=== PATIENT | male | born 1995 | race Caucasian/White ===

== ENCOUNTER 2019-09-03 11:45 | Emergency (ER) | payer BC ==
--- NOTE | 2019-09-03 12:17 | UC ---
Throat Pain/Nasal Alfie HPI - HPI Summary HPI Summary: 23-year-old male with a sore throat for the past 5 days and feeling of his ears being plugged. He denies any fever or chills. He states he has a productive cough of greenish sputum. He is a nonsmoker. - History of Current Complaint Stated Complaint: BILAT EAR PAIN/ST/BLURRY VISION Time Seen by Provider: 09/03/19 12:09 Hx Obtained From: Patient Onset/Duration: Gradual Onset Severity: Mild Cough: Productive - Allergies/Home Medications Allergies/Adverse Reactions: Allergies Allergy/AdvReac Type Severity Reaction Status Date / Time amoxicillin Allergy Unknown Hives Verified 09/03/19 12:17 Home Medications: Home Medications L.acidoph,Paracasei, B.lactis [Probiotic] 1 each PO DAILY 09/03/19 [History Confirmed 09/03/19] Olmesartan/Hydrochlorothiazide [Olmesartan Medoxomil/Hydr 20-12.5 mg] 1 tab PO DAILY 09/03/19 [History Confirmed 09/03/19] PMH/Surg Hx/FS Hx/Imm Hx Previously Healthy: Yes - Surgical History Surgical History: None - Family History Known Family History: Positive: Non-Contributory - Social History Lives: With Family Alcohol Use: Occasionally Substance Use Type: None Smoking Status (MU): Heavy Every Day Tobacco Smoker Review of Systems All Other Systems Reviewed And Are Negative: Yes ENT: Positive: Sore Throat, Other - Patient states his ears do not hurt however he does have a feeling of something plugged. Respiratory: Positive: Cough - Productive cough of greenish sputum. Is Patient Immunocompromised?: No Physical Exam Triage Information Reviewed: Yes Appearance: Well-Appearing, No Pain Distress, Well-Nourished Vital Signs Reviewed: Yes Eyes: Positive: Conjunctiva Clear ENT: Positive: Pharyngeal erythema, TMs normal, Uvula midline, Other - Patient has pharyngeal erythema but also white spots on his tongue and the back of his throat which appear more yeastlike. Neck: Positive: Supple, Nontender, No Lymphadenopathy Respiratory: Positive: Lungs clear, Normal breath sounds, No respiratory distress, No accessory muscle use Cardiovascular: Positive: RRR, No Murmur, Pulses Normal, Brisk Capillary Refill Abdomen Description: Positive: Nontender, No Organomegaly, Soft. Negative: CVA Tenderness (R), CVA Tenderness (L), Distended, Guarding, Hepatomegaly, Splenomegaly Musculoskeletal Exam: Normal Neurological Exam: Normal Psychological Exam: Normal Skin Exam: Normal Throat Pain/Nasal Course/Dx - Course Course Of Treatment: Rapid strep test: negative Fingerstick glucose: Out of ranged, rechecked twice Pt refuses to go to the emergency room by ambulance and prefers to drive by private car. I did advise him he needs to sign out AGAINST MEDICAL ADVICE in order to this and he was agreeable to doing that. I did call Jessica Rai, nurse practitioner at [facility] and advised her of his impending arrival and his history of present illness. - Differential Dx/Diagnosis Provider Diagnosis: Pharyngitis, Thrush, Elevated blood sugar level Discharge ED - Sign-Out/Discharge Documenting (check all that apply): Patient Departure All imaging exams completed and their final reports reviewed: No Studies - Discharge Plan Condition: Fair Disposition: HOME-RECOMMEND TO ED Referrals: No Primary Care Phys,NOPCP [Primary Care Provider] - Additional Instructions: Go directly to [facility] for further care for your elevated blood sugar. If you have any concerns or problems between here and there warehouse puller and call 911. - Billing Disposition and Condition Condition: FAIR Disposition: Home-Recommend to ED
[2019-09-03 12:29] VITALS: BP 138/69
== END 2019-09-03 13:11 | disposition home health service (06) ==
LOC: UCCORT 11:45
DX: J02.9 Acute pharyngitis, unspecified (principal); B37.0 Candidal stomatitis; R73.9 Hyperglycemia, unspecified; F17.290 Nicotine dependence, other tobacco product, uncomplicated; Z88.0 Allergy status to penicillin
CPT/HCPCS: 87651; 99212; G0463

== ENCOUNTER 2019-10-24 10:10 | Emergency (ER) | payer OTHER ==
--- OUTSIDE RECORDS SUMMARY | 2019-10-24 10:21 | XMS REPORT | Continuity of Care Document ---
:1995 External Reference #:[id number] Author Name Anam Sheppard MD Address [address] [place] [address] Care Team Providers Name Role Phone Adilson Sen FNP - Family Care Team Information Adult And Pediatric Neurologist [phone] Anam Sheppard MD - Family Medicine Care Team Information Adult And Pediatric Neurologist Michael Zelaya, RN Care Team Information Adult And Pediatric Neurologist [phone] Problems Description No Information Available Social History Type Date Description Comments Sex Unknown ETOH Use Uses Alcohol Daily Whisky or Vodka Recreational Drug Use Marijuana occassionally Tobacco Use Start: Unknown Patient is a current 15 cigarettes/day smoker, smokes every day Smoking Status Reviewed: 10/11/19 Patient is a current 15 cigarettes/day smoker, smokes every day Allergies, Adverse Reactions, Alerts Active Allergies Reaction Severity Comments Date Penicillin Hives 03/26/2019 Amoxicillin Hives 03/26/2019 Medications Active Medications SIG Qnty Indications Ordering Date Provider Dario M20 1 tab by mouth 30tabs E87.6 Anam Sheppard, 10/11/2019 20Meq every day MD Tablets ER Glucose 1 packet by 10units E10.9 Anam Sheppard, 10/11/2019 40% Gel mouth as needed MD for low blood glucose Olmesartan 1 by mouth every Unknown Medoxomil/Hydrochloro day thiazide 40-12.5mg Tablets Ibuprofen 3-4 tabs by Unknown 200mg mouth three Capsules times a day as needed with food or snack for pain Multivitamin Adult 1 by mouth every Unknown day Tablets Prilosec OTC 1 by mouth every Unknown 20mg day; as needed. Tablets DR Vargas Flextouch inject 15 units 30ml Anam Sheppard, under the skin 100Unit/ML Solution every morning Pen-Inject dispose of pen 28 days after first use Novolog Flexpen Inject 1 3 Times Unknown Daily Per 100Unit/ML Solution Sliding Scale Pen-Inject Maximum Daily Dose 10 Units Dispose Of Pen 28 Days After First Use Onetouch Delica Plus test 1 3 times 300units Anam Sheppard, Lancets Fine 30G daily as MD Plus directed 30G Misc Onetouch Verio test 1 3 times a 300units Anam Sheppard, Strips day as directed History Medications Omeprazole 1 by mouth 30caps K21.0 Eloy Solares MD 04/23/2019 - 20mg every day 09/10/[address] before meals Immunizations CPT Code Status Date Vaccine Lot # [id number] Given 05/31/1995 DTP Toxoids & Hib Vaccine 39008 Given 05/31/1995 Poliovirus Vaccine Oral 30810 Given 05/31/1995 MMR Vaccine, Live, For Subcutaneous Use 18422 Given 08/16/1994 Hepatitis B Vaccine 66527 Given 06/03/1994 DTP Toxoids & Hib Vaccine 51440 Given 03/26/1994 Hepatitis B Vaccine 50671 Given 03/26/1994 DTP Toxoids & Hib Vaccine 84433 Given 03/26/1994 Poliovirus Vaccine Oral 89688 Given 01/01/1994 Hemophilus Influenza B 11341 Given 01/01/1994 Hepatitis B Vaccine 84922 Given 01/01/1994 Poliovirus Vaccine Oral 93194 Given 01/01/1994 DTP Vaccine 49215 Refused 10/11/2019 Influenza Virus Vaccine, Quadrivalent, 36 Mos+, .5ML Vital Signs Date Vital Result Comment 10/11/2019 8:05am BP Systolic 138 mmHg BP Diastolic 92 mmHg Body Temperature 98.2 F Heart Rate 110 /min Respiratory Rate 20 /min Height 68 inches 5'8" Weight 154.00 lb BMI (Body Mass Index) 23.4 kg/m2 BSA (Body Surface Area) 1.83 m2 [place] body weight in kilograms 70 kg O2 % BldC Oximetry 97 % 09/10/2019 8:38am BP Systolic Sitting Left Arm 98 mmHg BP Diastolic Sitting Left Arm 62 mmHg Body Temperature 98.5 F Heart Rate 107 /min Respiratory Rate 18 /min Height 68 inches 5'8" Weight 149.00 lb BMI (Body Mass Index) 22.7 kg/m2 BSA (Body Surface Area) 1.80 m2 [place] body weight in kilograms 70 kg O2 % BldC Oximetry 98 % ra Results Test Acquired Date Facility Test Result H/L Range Note CBC 10/08/2019 [facility] White Blood 7.1 K/uL Normal 3.4-10.5 1 W/Automated [address] [place] [address] [phone] Red Blood Count 4.49 M/uL Normal 4.20-5.80 Hemoglobin 14.9 gm/dL Normal 12.8-17.0 Hematocrit 43.4 % Normal 38.0-48.0 Mean Cell Volume 96.7 fl High 80.0-96.0 Mean Corpuscular HGB 33.2 pg High 27.0-33.0 Mean Corpuscular HGB Conc 34.3 g/dL Normal 31.7-36.0 Platelet Count 236 K/uL Normal 155-360 Red Cell Distri Width SD 47.5 fl Normal 36-51 Red Cell Distri Width %CV 13.4 % Normal 11.6-15.8 Mean Platelet Volume 10.1 fl Normal 6.6-10.6 Neut% 58.1 % Normal 33.0-73.0 Lymph % 25.6 % Normal 20.0-42.0 [place] % 10.1 % High 0.0-10.0 Eo% 5.2 % Normal 0.0-6.6 Bas% 0.6 % Normal 0.0-1.1 Immature Grans 0.4 % Normal 0.0-5.0 NRBC % 0.0 /100WBC < 10/ 100 WBC Neut# 4.10 K/uL Normal 1.8-7.0 Lymph # 1.81 K/uL Normal 1.0-4.0 [place] # 0.71 K/uL Normal 0.0-0.8 Eos # 0.37 K/uL Normal 0.0-0.5 Baso # 0.04 K/uL Normal 0.0-0.1 Immature Grans Absolute 0.03 K/uL NRBC # 0.00 K/uL Iron-Tibc-%Sat 10/08/2019 [facility] Serum Iron 215 g/dL High 65-175 [address] [place], [place] [id number] [phone] Total Iron Binding Capacity 375 g/dL Normal 250-450 Transferrin %Saturation 57 % Normal 12-57 Laboratory test 10/08/2019 [facility] Ferritin 701 ng/mL High 26-388 finding [address] [place], [place] [id number] [phone] Comprehensive 10/08/2019 [facility] Glucose 101 mg/dL Normal 74-106 Metabolic Panel [address] [place], [place] [id number] [phone] BUN 8 mg/dL Normal 7-18 Creatinine 1.5 mg/dL High 0.6-1.3 Glom Filtration Rate, Estimate >60 mL/min >60 If >60 mL/min >60 2 BUN/Creat 5.3 ratio Sodium 134 mmol/L Low 136-145 Potassium 2.9 mmol/L Low 3.5-5.1 Chloride 88 mmol/L Critical low 98-107 Carbon Dioxide 37 mmol/L High 21-32 Anion Gap 9 mEq/L Normal 8-16 Calcium 8.8 mg/dL Normal 8.5-10.1 Total Protein 7.0 g/dL Normal 6.4-8.2 Albumin 3.2 g/dL Low 3.4-5.0 Globulin 3.8 g/dL Normal 1.9-4.3 Alb/Glob 0.8 ratio Bilirubin,Total 1.5 mg/dL High 0.2-1.0 Sgot/Ast 223 U/L High 15-37 SGPT/Alt 129 U/L High 12-78 Alkaline Phosphatase 139 U/L High 45-117 CBC W/Automated 06/06/2019 [facility] White Blood 7.3 K/uL Normal 3.4-10.5 3 Diff [address] [place] [address] [phone] Red Blood Count 5.12 M/uL Normal 4.20-5.80 Hemoglobin 17.0 gm/dL Normal 12.8-17.0 Hematocrit 49.3 % High 38.0-48.0 Mean Cell Volume 96.3 fl High 80.0-96.0 Mean Corpuscular HGB 33.2 pg High 27.0-33.0 Mean Corpuscular HGB Conc 34.5 g/dL Normal 31.7-36.0 Platelet Count 243 K/uL Normal 155-360 Red Cell Distri Width SD 52.9 fl High 36-51 Red Cell Distri Width %CV 14.9 % Normal 11.6-15.8 Mean Platelet Volume 10.2 fl Normal 6.6-10.6 Neut% 60.9 % Normal 33.0-73.0 Lymph % 23.3 % Normal 20.0-42.0 [place] % 9.8 % Normal 0.0-10.0 Eo% 4.5 % Normal 0.0-6.6 Bas% 0.7 % Normal 0.0-1.1 Immature Grans 0.8 % Normal 0.0-5.0 NRBC % 0.0 /100WBC < 10/ 100 WBC Neut# 4.46 K/uL Normal 1.8-7.0 Lymph # 1.71 K/uL Normal 1.0-4.0 [place] # 0.72 K/uL Normal 0.0-0.8 Eos # 0.33 K/uL Normal 0.0-0.5 Baso # 0.05 K/uL Normal 0.0-0.1 Immature Grans Absolute 0.06 K/uL NRBC # 0.00 K/uL [facility] 06/06/2019 [facility] Glucose 102 mg/dL Normal 74-106 Metabolic Panel [address] [place] [address] [phone] BUN 4 mg/dL Critical low 7-18 Creatinine 0.9 mg/dL Normal 0.6-1.3 Glom Filtration Rate, Estimate >60 mL/min >60 If >60 mL/min >60 4 BUN/Creat 4.4 ratio Sodium 136 mmol/L Normal 136-145 Potassium 4.1 mmol/L Normal 3.5-5.1 Chloride 98 mmol/L Normal 98-107 Carbon Dioxide 37 mmol/L High 21-32 Anion Gap 1 mEq/L Low 8-16 Calcium 9.4 mg/dL Normal 8.5-10.1 Total Protein 7.8 g/dL Normal 6.4-8.2 Albumin 3.8 g/dL Normal 3.4-5.0 Globulin 4.0 g/dL Normal 1.9-4.3 Alb/Glob 1.0 ratio Bilirubin,Total 0.6 mg/dL Normal 0.2-1.0 Sgot/Ast 405 U/L High 15-37 SGPT/Alt 301 U/L High 12-78 Alkaline Phosphatase 157 U/L High 45-117 Laboratory test finding 06/06/2019 [facility] Lipase 145 U/L Normal 56-[address] [place], [place] [id number] [phone] Amylase 29 U/L Normal 25-115 CBC W/Automated 04/16/2019 [facility] White Blood 13.1 K/uL High 3.4-10.5 [address] Count [place], [place] [id number] [phone] Red Blood Count 5.24 M/uL Normal 4.20-5.80 Hemoglobin 18.0 gm/dL High 12.8-17.0 Hematocrit 48.1 % High 38.0-48.0 Mean Cell Volume 91.8 fl Normal 80.0-96.0 Mean Corpuscular HGB 34.4 pg High 27.0-33.0 Mean Corpuscular HGB Conc 37.4 g/dL High 31.7-36.0 Platelet Count 273 K/uL Normal 155-360 Red Cell Distri Width SD 44.8 fl Normal 36-51 Red Cell Distri Width %CV 13.3 % Normal 11.6-15.8 Mean Platelet Volume 9.5 fl Normal 6.6-10.6 Neut% 74.2 % High 33.0-73.0 Lymph % 11.3 % Low 20.0-42.0 [place] % 9.1 % Normal 0.0-10.0 Eo% 4.2 % Normal 0.0-6.6 Bas% 0.3 % Normal 0.0-1.1 Immature Grans 0.9 % Normal 0.0-5.0 NRBC % 0.0 /100WBC < 10/ 100 WBC Neut# 9.68 K/uL High 1.8-7.0 Lymph # 1.47 K/uL Normal 1.0-4.0 [place] # 1.19 K/uL High 0.0-0.8 Eos # 0.55 K/uL High 0.0-0.5 Baso # 0.04 K/uL Normal 0.0-0.1 Immature Grans Absolute 0.12 K/uL NRBC # 0.00 K/uL Comprehensive Metabolic 04/16/2019 [facility] Glucose 117 mg/dL High 74-106 Panel [address] [place], [place] [id number] [phone] BUN 12 mg/dL Normal 7-18 Creatinine 1.7 mg/dL High 0.6-1.3 Glom Filtration Rate, Estimate 52 mL/min >60 If >60 mL/min >60 6 BUN/Creat 7.0 ratio Sodium 130 mmol/L Low 136-145 Potassium 2.9 mmol/L Low 3.5-5.1 Chloride 86 mmol/L Critical low 98-107 Carbon Dioxide 32 mmol/L Normal 21-32 Anion Gap 12 mEq/L Normal 8-16 Calcium 9.4 mg/dL Normal 8.5-10.1 Total Protein 8.2 g/dL Normal 6.4-8.2 Albumin 3.9 g/dL Normal 3.4-5.0 Globulin 4.3 g/dL Normal 1.9-4.3 Alb/Glob 0.9 ratio Bilirubin,Total 0.5 mg/dL Normal 0.2-1.0 Sgot/Ast 106 U/L High 15-37 SGPT/Alt 128 U/L High 12-78 Alkaline Phosphatase 104 U/L Normal 45-117 Laboratory test 04/16/2019 [facility] Lipase 8893 U/L Critical 56-289 7 finding [address] [place], [place] [address] [phone] Ua RFX Micro & 04/16/2019 [facility] Urine YELLOW Yellow Culture II [address] [place], [place] [id number] [phone] Urine Clarity CLEAR Clear Urine Glucose - Dipstick NEGATIVE mg/dL Negative Urine Bilirubin - Dipstick NEGATIVE Negative Urine Ketone TRACE mg/dL High Negative Urine Specific [place] >= 1.030 Normal 1.010-1.030 Urine Blood NEGATIVE Negative Urine PH 5.0 Low 6.5-7.5 Urine Protein - Dipstick TRACE mg/dL Negative Urine Urobilinogen - Dipstick 0.2 E.U./dL Normal 0.2-1.0 Urine Nitrite - Dipstick NEGATIVE Negative Urine Leuk Esterase NEGATIVE Negative Source: URINE, CLEAN CAT <SEE NOTE> 8 1 E10.69 2 Note: Persistent reduction for 3 months or more in an eGFR <60 mL/min/1.73 m2 defines CKD. Patients with eGFR values >/=60 mL/min/1.73 m2 may also have CKD if evidence of persistent proteinuria is present. The original MDRD equation for estimated GFR is not valid for patients less than 18 years of age. Additional information may be found at www.kdoqi.org. 3 K85.20 4 Note: Persistent reduction for 3 months or more in an eGFR <60 mL/min/1.73 m2 defines CKD. Patients with eGFR values >/=60 mL/min/1.73 m2 may also have CKD if evidence of persistent proteinuria is present. The original MDRD equation for estimated GFR is not valid for patients less than 18 years of age. Additional information may be found at www.kdoqi.org. 5 UPPER RT ABD PAIN GOING INTO BACK 6 Note: Persistent reduction for 3 months or more in an eGFR <60 mL/min/1.73 m2 defines CKD. Patients with eGFR values >/=60 mL/min/1.73 m2 may also have CKD if evidence of persistent proteinuria is present. The original MDRD equation for estimated GFR is not valid for patients less than 18 years of age. Additional information may be found at www.kdoqi.org. 7 CALLED LIP TO GOKUL Chase AT 2312 04/16/19 by [email or web address] 8 URINE, CLEAN CATCH Procedures Date Code Description Status 04/11/2019 05367 Colonoscopy With Biopsy Completed Medical Devices Description No Information Available Encounters Type Date Location Provider Dx Diagnosis Office Visit 10/11/2019 Primary Care Anam Sheppard, E10.9 Type 1 diabetes 8:00a Office mellitus without complications E87.6 Hypokalemia F10.19 Alcohol abuse with unspecified alcohol-induced disorder R94.5 Abnormal results of liver function studies Office Visit 09/10/2019 8:40a Primary Care Silver E10.9 Type 1 diabetes Office MD Anam mellitus without complications I10 Essential (primary) hypertension K85.20 Alcohol induced acute pancreatitis without necrosis or infct Z72.0 Tobacco use Office Visit 06/12/2019 10:00a Eloy Harrington MD R79.89 Other specified abnormal findings of blood chemistry R10.13 Epigastric pain K85.20 Alcohol induced acute pancreatitis without necrosis or infct Office Visit 04/23/2019 1:45p GI Eloy Solares MD K85.20 Alcohol induced acute pancreatitis without necrosis or infct K44.9 Diaphragmatic hernia without obstruction or gangrene K21.0 Gastro-esophageal reflux disease with esophagitis Assessments Date Code Description Provider 10/11/2019 E10.9 Type 1 diabetes mellitus without Anam Sheppard MD complications 10/11/2019 E87.6 Hypokalemia Anam Sheppard MD 10/11/2019 F10.19 Alcohol abuse with unspecified Anam Sheppard MD alcohol-induced disorder 10/11/2019 R94.5 Abnormal results of liver function studies Anam Sheppard MD 09/10/2019 E10.9 Type 1 diabetes mellitus without Anam Sheppard MD complications 09/10/2019 I10 Essential (primary) hypertension Anam Sheppard MD 09/10/2019 K85.20 Alcohol induced acute pancreatitis without Anam Sheppard MD necrosis or infection 09/10/2019 Z72.0 Tobacco use Anam Sheppard MD 09/04/2019 E10.69 Type 1 diabetes mellitus with other Cadet, Adilson, [employer] specified complication 09/04/2019 E86.0 Dehydration Cadet, Adilson, [employer] 09/04/2019 E87.8 Other disorders of electrolyte and fluid Cadet, Adilson, [employer] balance, not elsewhere classified 09/04/2019 K85.90 Acute pancreatitis without necrosis or Cadet, Adilson, [employer]ING infection, unspecified 09/03/2019 E10.69 Type 1 diabetes mellitus with other Cadet, Adilson, [employer] specified complication 09/03/2019 E86.0 Dehydration Cadet, Adilson, [employer]ING 09/03/2019 H53.8 Other visual disturbances Cadet, Adilson, [employer] 09/03/2019 E87.8 Other disorders of electrolyte and fluid Cadet, Adilson, [employer]ING balance, not elsewhere classified 06/12/2019 R79.89 Other specified abnormal findings of blood Eloy Solares MD chemistry 06/12/2019 R10.13 Epigastric pain Eloy Solares MD 06/12/2019 K85.20 Alcohol induced acute pancreatitis without Eloy Solares MD necrosis or infection 04/23/2019 K85.20 Alcohol induced acute pancreatitis without Eloy Solares MD necrosis or infection 04/23/2019 K44.9 Diaphragmatic hernia without obstruction or Eloy Solares MD gangrene 04/23/2019 K21.0 Gastro-esophageal reflux disease with Eloy Solares MD esophagitis 04/19/2019 K85.20 Alcohol induced acute pancreatitis without Ray Aiken M.DAnibal necrosis or infection 04/19/2019 R10.13 Epigastric pain Ray Aiken M.D. 04/19/2019 N17.9 Acute kidney failure, unspecified AikenRay stevens M.D. 04/19/2019 E87.6 Hypokalemia Ray Aiken M.D. 04/18/2019 K85.20 Alcohol induced acute pancreatitis without Ray Aiken M.DAnibal necrosis or infection 04/18/2019 R10.13 Epigastric pain Ray Aiken M.D. 04/18/2019 D72.829 Elevated white blood cell count, Ray Aiken M.D. unspecified 04/18/2019 E87.6 Hypokalemia Ray Aiken M.D. 04/17/2019 K85.20 Alcohol induced acute pancreatitis without Ray Aiken MJacqueline necrosis or infection 04/17/2019 R10.13 Epigastric pain Ray Aiken M.D. 04/17/2019 N17.9 Acute kidney failure, unspecified Ray Aiken M.D. 04/17/2019 E87.6 Hypokalemia Ray Aiken M.D. 04/16/2019 K85.20 Alcohol induced acute pancreatitis without Fidel Webber M.D. necrosis or infection 04/16/2019 R10.13 Epigastric pain Fidel Webber M.D. 04/16/2019 D72.829 Elevated white blood cell count, Fidel Webber M.D. unspecified 04/11/2019 K44.9 Diaphragmatic hernia without obstruction or Eloy Solares MD gangrene 04/11/2019 K21.0 Gastro-esophageal reflux disease with Eloy Solares MD esophagitis 04/11/2019 K29.50 Unspecified chronic gastritis without Eloy Solares MD bleeding 04/11/2019 F17.210 Nicotine dependence, cigarettes, Eloy Solares MD uncomplicated 04/11/2019 Z79.899 Other nursing home (current) drug therapy Eloy Solares MD Plan of Treatment Future Appointment(s):11/13/2019 8:00 am - Anam Sheppard MD at [id number]/11/2019 - Anam Sheppard MDE10.9 Type 1 diabetes mellitus without complicationsNew Medication:Glucose 40 % - 1 packet by mouth as needed for low blood glucoseNew Labs:Comprehensive Metabolic Panel, Ordered: Hemochromatosis,Dna,Hereditary, Ordered: 10/11/19Comments:- Reviewed labs with patient. - Advised good hydration with water and repeat labs early next week.-Reviewed appropriate injection practice regarding rotating sites.- Reviewed signs and symptoms of hyperglycemia and hypoglycemia. Verfied that he is taking glucometer with him to work and coworker is aware that he is diabetic. - Unclear whether this is T1DM vs T2DM as he does not require mealtime insulin coverage. Patient seeing endocrinology 10/22/19.E87.6 HypokalemiaNew Medication:Klor-Con M20 20 Meq - 1 tab by mouth every dayComments :- Discussed low potassium levels and potassium rich foods such as bananas, spinach, broccoli, raisins, potatoes, etc. He admits that he does not eat much of these foods.- Potassium 20mEq tabs ordered,to be taken 1 tab daily for nextcouple of weeks. Will have follow-up lab work next week. Will follow his potassium levels a couple weeks after this as wellF10.19 Alcohol abuse with unspecified alcohol-induced disorderComments:- elevated liver enzymes- Discussed alcohol use and impact on liver and pancreas. Patient admits todrinking very heavily in the past, has reduced his consumption since last hospitalization. Advised to continued reduction until complete abstinence.- I did briefly discuss an inpatient detox program with the patient.R94.5 Abnormal results of liver function studiesComments:Patient admits to alcohol consumption on the days prior to lab draw.Denies any abdominal pain.Will follow-up lab work next week.Hydration encouraged.Counseled on the harmful effects of alcohol and recommended abstinence.Labs are reviewed with patient. He has elevated levels of ferritin, iron and TSAT. Will order hereditary hemachromatosis lab work.AllFollow up:Lab work next week. Follow-up 1 month Functional Status Description No Information Available Mental Status Description No Information Available Referrals Refer to Dr Reason for Referral Status Appt Date Michael Zelaya RN Diabetes Education. Newly diagnosed Patient Declined - presumed type 1 diabetic. Set to see Endocrine in October. LEFT MESSAGE TO SCHEDULE 09/11/19 [facility] [address] [place] [address] [phone]
--- OUTSIDE RECORDS SUMMARY | 2019-10-24 10:21 | XMS REPORT | Continuity of Care Document ---
:1995 External Reference #:[id number] Author Name Anam Sheppard MD Address [address] [place] [address] Care Team Providers Name Role Phone Adilson Sen FNP - Family Care Team Information Sorter Packer [phone] Anam Sheppard MD - Family Medicine Care Team Information Sorter Packer [phone] Michael Zelaya, RN Care Team Information Sorter Packer [phone] Problems Description No Information Available Social History Type Date Description Comments Sex Unknown ETOH Use Uses Alcohol Daily Whisky or Vodka Recreational Drug Use Marijuana occassionally Tobacco Use Start: Unknown Patient is a current 15 cigarettes/day smoker, smokes every day Smoking Status Reviewed: 09/10/19 Patient is a current 15 cigarettes/day smoker, smokes every day Allergies, Adverse Reactions, Alerts Active Allergies Reaction Severity Comments Date Penicillin Hives 03/26/2019 Amoxicillin Hives 03/26/2019 Medications Active Medications SIG Qnty Indications Ordering Provider Date Olmesartan 1 by mouth every Unknown Medoxomil/Hydrochlorot day hiazide 40-12.5mg Tablets Ibuprofen 3-4 tabs by mouth Unknown 200mg Capsules three times a day as needed with food or snack for pain Multivitamin Adult 1 by mouth every Unknown day Tablets Prilosec OTC 1 by mouth every Unknown 20mg Tablets day; as needed. DR Vargas Flextouch inject 15 units 30ml Anam Sheppard MD under the skin 100Unit/ML Solution every morning Pen-Inject dispose of pen 28 days after first use Novolog Flexpen Inject 1 3 Times Unknown Daily Per Sliding 100Unit/ML Solution Scale Maximum Pen-Inject Daily Dose 10 Units Dispose Of Pen 28 Days After First Use History Medications Omeprazole 1 by mouth 30caps K21.0 Eloy Solares MD 04/23/2019 - 20mg every day 09/10/[address] before meals Immunizations CPT Code Status Date Vaccine Lot # 73194 Given 05/31/1995 DTP Toxoids & Hib Vaccine 39563 Given 05/31/1995 Poliovirus Vaccine Oral 03466 Given 05/31/1995 MMR Vaccine, Live, For Subcutaneous Use 49105 Given 08/16/1994 Hepatitis B Vaccine 14946 Given 06/03/1994 DTP Toxoids & Hib Vaccine 91467 Given 03/26/1994 Hepatitis B Vaccine 15300 Given 03/26/1994 DTP Toxoids & Hib Vaccine 33647 Given 03/26/1994 Poliovirus Vaccine Oral 87467 Given 01/01/1994 [place] B [address] Given 01/01/1994 Hepatitis B Vaccine 13285 Given 01/01/1994 Poliovirus Vaccine Oral 98452 Given 01/01/1994 DTP Vaccine Vital Signs Date Vital Result Comment 09/10/2019 8:38am BP Systolic Sitting Left Arm 98 mmHg BP Diastolic Sitting Left Arm 62 mmHg Body Temperature 98.5 F Heart Rate 107 /min Respiratory Rate 18 /min Height 68 inches 5'8" Weight 149.00 lb BMI (Body Mass Index) 22.7 kg/m2 BSA (Body Surface Area) 1.80 m2 [place] body weight in kilograms 70 kg O2 % BldC Oximetry 98 % ra 06/12/2019 10:17am BP Systolic Sitting Left Arm 132 mmHg BP Diastolic Sitting Left Arm 90 mmHg Heart Rate 115 /min Respiratory Rate 16 /min Height 68 inches 5'8" Weight 154.00 lb BMI (Body Mass Index) 23.4 kg/m2 BSA (Body Surface Area) 1.83 m2 [place] body weight in kilograms 70 kg O2 % BldC Oximetry 98 % Ra Results Test Acquired Date Facility Test Result H/L Range Note CBC 06/06/2019 [facility] White Blood 7.3 K/uL Normal 3.4-10.5 1 W/Automated [address] Count Diff [place], [place] [address] [phone] Red Blood Count 5.12 M/uL Normal 4.20-5.80 [...] 33.0-73.0 Lymph % 23.3 % Normal 20.0-42.0 [place] % 9.8 % Normal 0.0-10.0 Eo% 4.5 % Normal 0.0-6.6 Bas% 0.7 % Normal 0.0-1.1 Immature Grans 0.8 % Normal 0.0-5.0 NRBC % 0.0 /100WBC < 10/ 100 WBC Neut# 4.46 K/uL Normal 1.8-7.0 Lymph # 1.71 K/uL Normal 1.0-4.0 [place] # 0.72 K/uL Normal 0.0-0.8 Eos # 0.33 K/uL Normal 0.0-0.5 Baso # 0.05 K/uL Normal 0.0-0.1 Immature Grans Absolute 0.06 K/uL NRBC # 0.00 K/uL [facility] 06/06/2019 [facility] Glucose 102 mg/dL Normal 74-106 Metabolic Panel [address] [place] [address] [phone] BUN 4 mg/dL Critical low 7-18 Creatinine 0.9 mg/dL Normal 0.6-1.3 Glom Filtration Rate, Estimate >60 mL/min >60 If >60 mL/min >60 2 BUN/Creat 4.4 ratio Sodium 136 mmol/L Normal [...] U/L High 45-117 Laboratory test finding 06/06/2019 [facility] Lipase 145 U/L Normal 56-[address] [place], [place] [address] [phone] Amylase 29 U/L Normal 25-115 CBC W/Automated 04/16/2019 [facility] White Blood 13.1 K/uL High 3.4-10.[address] [place] [address] [phone] Red Blood Count 5.24 M/uL Normal 4.20-5.80 [...] 33.0-73.0 Lymph % 11.3 % Low 20.0-42.0 Pope % 9.1 % Normal 0.0-10.0 Eo% 4.2 % Normal 0.0-6.6 Bas% 0.3 % Normal 0.0-1.1 Immature Grans 0.9 % Normal 0.0-5.0 NRBC % 0.0 /100WBC < 10/ 100 WBC Neut# 9.68 K/uL High 1.8-7.0 Lymph # 1.47 K/uL Normal 1.0-4.0 Pope # 1.19 K/uL High 0.0-0.8 Eos # 0.55 K/uL High 0.0-0.5 Baso # 0.04 K/uL Normal 0.0-0.1 Immature Grans Absolute 0.12 K/uL NRBC # 0.00 K/uL Comprehensive Metabolic 04/16/2019 [facility] Glucose 117 mg/dL High 74-106 Panel [address] [place], [place] [id number] [phone] BUN 12 mg/dL Normal 7-18 Creatinine 1.7 mg/dL High 0.6-1.3 Glom Filtration Rate, Estimate 52 mL/min >60 If >60 mL/min >60 4 BUN/Creat 7.0 ratio Sodium 130 mmol/L Low [...] 104 U/L Normal 45-117 Laboratory test 04/16/2019 [facility] Lipase 8893 U/L Critical 56-289 5 finding [address] [place], [place] [address] [phone] Ua RFX Micro & 04/16/2019 [facility] Urine YELLOW Yellow Culture II [address] [facility] [place] [address] [phone] Urine Clarity CLEAR Clear Urine Glucose - Dipstick NEGATIVE mg/dL Negative Urine Bilirubin - Dipstick NEGATIVE Negative Urine Ketone TRACE mg/dL High Negative Urine Specific [place] >= 1.030 Normal 1.010-1.030 Urine Blood NEGATIVE Negative Urine PH 5.0 Low 6.5-7.5 Urine Protein - Dipstick TRACE mg/dL Negative Urine Urobilinogen - Dipstick 0.2 E.U./dL Normal 0.2-1.0 Urine Nitrite - Dipstick NEGATIVE Negative Urine Leuk Esterase NEGATIVE Negative Source: URINE, CLEAN CAT <SEE NOTE> 6 1 K85.20 2 Note: Persistent reduction for 3 months or more in an eGFR <60 mL/min/1.73 m2 defines CKD. Patients with eGFR values >/=60 mL/min/1.73 m2 may also have CKD if evidence of persistent proteinuria is present. The original MDRD equation for estimated GFR is not valid for patients less than 18 years of age. Additional information may be found at www.kdoqi.org. 3 UPPER RT ABD PAIN GOING INTO BACK 4 Note: Persistent reduction for 3 months or more in an eGFR <60 mL/min/1.73 m2 defines CKD. Patients with eGFR values >/=60 mL/min/1.73 m2 may also have CKD if evidence of persistent proteinuria is present. The original MDRD equation for estimated GFR is not valid for patients less than 18 years of age. Additional information may be found at www.kdoqi.org. 5 CALLED LIP TO GOKUL [place] AT 2312 04/16/19 by [email or web address] 6 URINE, CLEAN CATCH Procedures Date Code Description Status 04/11/2019 98860 Colonoscopy With Biopsy Completed Medical Devices Description No Information Available Encounters Type Date Location Provider Dx Diagnosis Office Visit 06/12/2019 Eloy Harrington MD R79.89 Other specified 10:00a abnormal findings of blood chemistry R10.13 Epigastric pain K85.20 Alcohol induced acute pancreatitis without necrosis or infct Office Visit 04/23/2019 1:45p Eloy Harrington MD K85.20 Alcohol induced acute pancreatitis without necrosis or infct K44.9 Diaphragmatic hernia without obstruction or gangrene K21.0 Gastro-esophageal reflux disease with esophagitis Office Visit 03/26/2019 3:30p Eloy Harrington MD R10.9 Unspecified abdominal pain R19.7 Diarrhea, unspecified Assessments Date Code Description Provider 09/10/2019 E10.9 Type 1 diabetes mellitus without Anam Sheppard MD complications 09/10/2019 I10 Essential (primary) hypertension Anam Sheppard MD 09/10/2019 K85.20 Alcohol induced acute pancreatitis without Anam Sheppard MD necrosis or infection 09/10/2019 Z72.0 Tobacco use Anam Sheppard MD 09/04/2019 E10.69 Type 1 diabetes mellitus with other Cadet, Adilson, CORPORATE CONTROLLER specified complication 09/04/2019 E86.0 Dehydration Cadet, Adilson, CORPORATE CONTROLLER 09/04/2019 E87.8 Other disorders of electrolyte and fluid Cadet, Adilson, CORPORATE CONTROLLER balance, not elsewhere classified 09/04/2019 K85.90 Acute pancreatitis without necrosis or Cadet, Adilson, CORPORATE CONTROLLER infection, unspecified 09/03/2019 E10.69 Type 1 diabetes mellitus with other Cadet, Adilson, CORPORATE CONTROLLER specified complication 09/03/2019 E86.0 Dehydration Cadet, Adilson, CORPORATE CONTROLLER 09/03/2019 H53.8 Other visual disturbances Cadet, Adilson, CORPORATE CONTROLLER 09/03/2019 E87.8 Other disorders of electrolyte and fluid Cadet, Adislon, CORPORATE CONTROLLER balance, not elsewhere classified 06/12/2019 R79.89 Other [...] Alcohol induced acute pancreatitis without Ray Aiken M.D. necrosis or infection 04/19/2019 R10.13 Epigastric pain Ray Aiken M.D. 04/19/2019 N17.9 Acute kidney failure, unspecified Ray Aiken M.D. 04/19/2019 E87.6 Hypokalemia Ray Aiken M.D. 04/18/2019 K85.20 Alcohol induced acute pancreatitis without Ray Aiken M.D. necrosis or infection 04/18/2019 R10.13 Epigastric pain Ray Aiken M.D. 04/18/2019 D72.829 Elevated white blood cell count, Ray Aiken M.D. unspecified 04/18/2019 E87.6 Hypokalemia Ray Aiken M.D. 04/17/2019 K85.20 Alcohol induced acute pancreatitis without Ray Aiken M.D. necrosis or infection 04/17/2019 R10.13 Epigastric pain [...] Eloy Solares MD uncomplicated 04/11/2019 Z79.899 Other block making machine operator (current) drug therapy Eloy Solares MD 03/26/2019 R10.9 Unspecified abdominal pain Eloy Solares MD 03/26/2019 R19.7 Diarrhea, unspecified Eloy Solares MD Plan of Treatment Future Appointment(s):10/11/2019 8:00 am - An[facility]pp[facility] MD at [facility] [id number]/10/2019 - Anam Sheppard MDE10.9 Type 1 diabetes mellitus without complicationsComments:- Educated patient about diet and glucose control.- Patient to continue monitoring BG and maintain log. - Continue using sliding scale.- Educated patient on s/s of hyperglycemia and hypoglycemia.I10 Essential (primary) dutrakqgkzhcL29.20 Alcohol induced acute pancreatitis without necrosis or qyqpigckuS48.0 Tobacco use Functional Status Description No Information Available Mental Status Description No Information Available Referrals Refer to Reason for Referral Status Appt Date Michael Zelaya, health specialist Education. Newly diagnosed - Created presumed type 1 diabetic. Set to see Endocrine in October. LEFT MESSAGE TO SCHEDULE 09/11/19 [facility] [address] [place] [address] [phone]
--- OUTSIDE RECORDS SUMMARY | 2019-10-24 10:21 | XMS REPORT | Continuity of Care Document ---
:1993 External Reference #:[id number] Author Name Anam Sheppard MD Address [address] [facility] [place] [address] Care Team Providers Name Role Phone Adilson Sen FNP - Family Care Team Information Cementer Helper [phone] Anam Sheppard MD - Family Medicine Care Team Information Cementer Helper Problems Description No Information Available Social History [...] Tablets day; as needed. DR Vargas Flextouch Inject 10 Units Unknown Under The Skin 100Unit/ML Solution Every Morning Pen-Inject Dispose Of Pen 28 Days After First Use Novolog Flexpen Inject 1 3 Times Unknown Daily Per Sliding 100Unit/ML Solution Scale Maximum Pen-Inject Daily Dose 10 Units Dispose Of Pen 28 Days After First Use History Medications Omeprazole 1 by mouth 30caps K21.0 Eloy Solares MD 04/23/2019 - 20mg every day 09/10/[address] before meals Immunizations CPT Code Status Date Vaccine Lot # 32685 Given 05/31/1995 DTP Toxoids & Hib Vaccine 05112 Given 05/31/1995 Poliovirus Vaccine Oral 76004 Given 05/31/1995 MMR Vaccine, Live, For Subcutaneous Use 05099 Given 08/16/1994 Hepatitis B Vaccine 05568 Given 06/03/1994 DTP Toxoids & Hib Vaccine 05027 Given 03/26/1994 Hepatitis B Vaccine 81192 Given 03/26/1994 DTP Toxoids & Hib Vaccine 18020 Given 03/26/1994 Poliovirus Vaccine Oral 86638 Given 01/01/1994 Hemophilus Influenza B 25512 Given 01/01/1994 Hepatitis B Vaccine 65447 Given 01/01/1994 Poliovirus Vaccine Oral 01304 Given 01/01/1994 DTP Vaccine Vital Signs Date Vital Result Comment 09/10/2019 8:38am BP Systolic Sitting Left Arm 98 mmHg BP Diastolic Sitting Left Arm 62 mmHg Body Temperature 98.5 F Heart Rate 107 /min Respiratory Rate 18 /min Height 68 inches 5'8" Weight 149.00 lb BMI (Body Mass Index) 22.7 kg/m2 BSA (Body Surface Area) 1.80 m2 [place] body weight in kilograms 70 kg O2 % BldC Oximetry 98 % ra 06/12/2019 10:17am BP Systolic Sitting Left Arm 132 mmHg BP Diastolic Sitting Left Arm 90 mmHg Heart Rate 115 /min Respiratory Rate 16 /min Height 68 inches 5'8" Weight 154.00 lb BMI (Body Mass Index) 23.4 kg/m2 BSA (Body Surface Area) 1.83 m2 [place] body weight in kilograms 70 kg O2 % BldC Oximetry 98 % Ra Results Test Acquired Date Facility Test Result H/L Range Note CBC 06/06/2019 [facility] White Blood 7.3 K/uL Normal 3.4-10.5 1 W/Automated [address] [place] [address] [phone] Red Blood Count 5.12 M/uL Normal 4.20-5.80 [...] 33.0-73.0 Lymph % 23.3 % Normal 20.0-42.0 [place] % 9.8 % Normal 0.0-10.0 Eo% 4.5 % Normal 0.0-6.6 Bas% 0.7 % Normal 0.0-1.1 Immature Grans 0.8 % Normal 0.0-5.0 NRBC % 0.0 /100WBC < 10/ 100 WBC Neut# 4.46 K/uL Normal 1.8-7.0 Lymph # 1.71 K/uL Normal 1.0-4.0 [place] # 0.72 K/uL Normal 0.0-0.8 Eos # 0.33 K/uL Normal 0.0-0.5 Baso # 0.05 K/uL Normal 0.0-0.1 Immature Grans Absolute 0.06 K/uL NRBC # 0.00 K/uL Comprehensive 06/06/2019 [facility] Glucose 102 mg/dL Normal 74-106 Metabolic Panel [address] [place], [place] [address] [phone] BUN 4 mg/dL Critical low 7-18 Creatinine [...] U/L High 45-117 Laboratory test finding 06/06/2019 [facility] Lipase 145 U/L Normal 56-[address] [place], [place] [address] [phone] Amylase 29 U/L Normal 25-115 CBC W/Automated 04/16/2019 [facility] White Blood 13.1 K/uL High 3.4-10.[address] [place] [address] [phone] Red Blood Count 5.24 M/uL Normal 4.20-5.80 [...] 33.0-73.0 Lymph % 11.3 % Low 20.0-42.0 [place] % 9.1 % Normal 0.0-10.0 Eo% 4.2 % Normal 0.0-6.6 Bas% 0.3 % Normal 0.0-1.1 Immature Grans 0.9 % Normal 0.0-5.0 NRBC % 0.0 /100WBC < 10/ 100 WBC Neut# 9.68 K/uL High 1.8-7.0 Lymph # 1.47 K/uL Normal 1.0-4.0 [place] # 1.19 K/uL High 0.0-0.8 Eos # 0.55 K/uL High 0.0-0.5 Baso # 0.04 K/uL Normal 0.0-0.1 Immature Grans Absolute 0.12 K/uL NRBC # 0.00 K/uL Comprehensive Metabolic 04/16/2019 [facility] Glucose 117 mg/dL High 74-106 Panel [address] [place], [place] [address] [phone] BUN 12 mg/dL Normal 7-18 Creatinine 1.7 [...] 104 U/L Normal 45-117 Laboratory test 04/16/2019 [facility] Lipase 8893 U/L Critical 56-289 5 finding [address] [place], [place] [address] [phone] Ua RFX Micro & 04/16/2019 [facility] Urine YELLOW Yellow Culture II [address] [place] [address] [phone] Urine Clarity CLEAR Clear Urine Glucose - Dipstick NEGATIVE mg/dL Negative Urine Bilirubin - Dipstick NEGATIVE Negative Urine Ketone TRACE mg/dL High Negative Urine Specific [place] >= 1.030 Normal 1.010-1.030 Urine Blood NEGATIVE [...] CATCH Procedures Date Code Description Status 04/11/2019 72583 Colonoscopy With Biopsy Completed Medical Devices Description [...] 1 diabetes mellitus with other Cadet, Adilson, CNC ROUTER OPERATOR specified complication 09/04/2019 E86.0 Dehydration Cadet, Adilson, CNC ROUTER OPERATOR 09/04/2019 E87.8 Other disorders of electrolyte and fluid Cadet, Adilson, CNC ROUTER OPERATOR balance, not elsewhere classified 09/04/2019 K85.90 Acute pancreatitis without necrosis or Cadet, Adilson, CNC ROUTER OPERATOR infection, unspecified 09/03/2019 E10.69 Type 1 diabetes mellitus with other Cadet, Adilson, CNC ROUTER OPERATOR specified complication 09/03/2019 E86.0 Dehydration Cadet, Adilson, CNC ROUTER OPERATOR 09/03/2019 H53.8 Other visual disturbances Cadet, Adilson, CNC ROUTER OPERATOR 09/03/2019 E87.8 Other disorders of electrolyte and fluid Cadet, Adilson, CNC ROUTER OPERATOR balance, not elsewhere classified 06/12/2019 R79.89 Other [...] Eloy Solares MD uncomplicated 04/11/2019 Z79.899 Other correction (current) drug therapy Eloy Solares MD 03/26/2019 R10.9 Unspecified abdominal pain Eloy Solares MD 03/26/2019 R19.7 Diarrhea, unspecified Eloy Solares MD Plan of Treatment Future Appointment(s):10/11/2019 8:00 am - Anam Sheppard MD at [facility] Spwvid3109/10/2019 - Anam Sheppard MDE10.9 Type 1 diabetes mellitus without [id number] Essential (primary) qsmiuglecmghS25.20 Alcohol induced acute pancreatitis without necrosis or zywirazcyL29.0 Tobacco use Functional Status Description No Information Available Mental Status Description No Information Available Referrals Description No Information Available
[2019-10-24 10:55] VITALS: BP 143/106
--- NOTE | 2019-10-24 11:16 | UC ---
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 One and a half weeks ago he slipped on the ice and twisted and has had pain since then. He has been ambulatory but has continued working. This was not work related. - History of Current Complaint Chief Complaint: UCLowerExtremity Stated Complaint: RT KNEE COMPLAINT Time Seen by Provider: 10/24/19 11:04 Hx Obtained From: Patient Onset/Duration: Gradual Onset Severity Initially: Mild Severity Currently: Moderate Pain Intensity: 6 Character: Dull, Aching Aggravating Factor(s): Weight Bearing, Nothing - More pain with flexion. Alleviating Factor(s): Rest Associated Signs And Symptoms: Positive: Swelling Able to Bear Weight: Yes - Allergies/Home Medications Allergies/Adverse Reactions: Allergies Allergy/AdvReac Type Severity Reaction Status Date / Time amoxicillin Allergy Unknown Hives Verified 10/24/19 10:49 Home Medications: Home Medications Insulin Detemir (NF) [Levemir (NF)] 10 units SUBCUT DAILY 10/24/19 [History Confirmed 10/24/19] PMH/Surg Hx/FS Hx/Imm Hx Previously Healthy: Yes - Surgical History Surgical History: None Surgery Procedure, Year, and Place: lasik surgery - Family History Known Family History: Positive: Non-Contributory - Social History Lives: With Family Alcohol Use: None Substance Use Type: None Smoking Status (MU): Heavy Every Day Tobacco Smoker Type: Cigarettes Amount Used/How Often: 3/4 ppd Household Exposure Type: Cigarettes Review of Systems All Other Systems Reviewed And Are Negative: Yes Musculoskeletal: Positive: Other: - Patient states chronic right knee pain over the past couple months but worse since he slipped on the ice one half weeks ago and twisted it. He has been able to ambulate and has continued working. He complains of mild swelling to the inner aspect and sometimes pain in the back of the knee after a day at work. Is Patient Immunocompromised?: No Physical Exam Triage Information Reviewed: Yes Appearance: Well-Appearing, No Pain Distress, Well-Nourished Vital Signs: Initial Vital Signs Temp 98.8 F 10/24/19 10:51 Pulse 105 10/24/19 10:51 Resp 16 10/24/19 10:51 BP 143/106 10/24/19 10:51 Pulse Ox 100 10/24/19 10:51 Vital Signs Reviewed: Yes Musculoskeletal: Positive: Strength Intact, ROM Intact, Other: - Good peripheral pulses, neuro sensation and capillary refill. Mild swelling to the medial aspect of right knee with minimal tenderness on palpation. No deformity or bruising. Patellar and knee ligaments are intact. Able to lift his leg up off the exam table. Neurological Exam: Normal Psychological Exam: Normal Skin Exam: Normal Knee Pain Course/Dx - Course Course Of Treatment: Right knee x-ray: Negative Patient is comfortable here. A knee immobilizer was placed and the patient can keep it on over the next couple of days. He is to elevate as much as possible definite follow-up with the orthopedist for further care. - Differential Dx/Diagnosis Provider Diagnosis: Strain of right knee Discharge ED - Sign-Out/Discharge Documenting (check all that apply): Patient Departure All imaging exams completed and their final reports reviewed: Yes - Discharge Plan Condition: Fair Disposition: HOME Patient Education Materials: Knee Sprain (DC) Referrals: Nitish Chiang MD [Medical Doctor] - Anam Sheppard MD [Primary Care Provider] - Leslye Forbes MD [Medical Doctor] - Additional Instructions: Use the knee immobilizer over the next 2 or 3 days. Elevate and apply warm moist compresses to the sore area 4-6 times a day for 20 minutes each time. Avoid movements that causes pain. May take ibuprofen every 8 hours for pain. Definite follow-up with the orthopedist early next week for continued evaluation. - Billing Disposition and Condition Condition: FAIR Disposition: Home - Attestation Statements Provider Attestation: I was available for consult. This patient was seen by the JANET. The patient was not presented to, seen by, or examined by me. -[place]
== END 2019-10-24 11:52 | disposition home or self-care (01) ==
LOC: UCCORT 10:10
DX: S86.811A Strain of other muscle(s) and tendon(s) at lower leg level, right leg, initial encounter (principal); F17.210 Nicotine dependence, cigarettes, uncomplicated; Z88.0 Allergy status to penicillin; W18.49XA Other slipping, tripping and stumbling without falling, initial encounter; X50.1XXA Overexertion from prolonged static or awkward postures, initial encounter; Y92.9 Unspecified place or not applicable
CPT/HCPCS: 99212; G0463

== ENCOUNTER → 2019-12-06 06:18 | Day surgery (SDC) | payer BC, OTHER ==
[~2019-12-06 06:18] MED LIST: Buffered Lidocaine 1% SYRIN* 1 ML/SYRINGE INTRADERM ONE; Bupivacaine 0.25% SDV PF* 10 ML VIAL INJ ONE; Clindamycin 900 MG/D5W BAG(*) 900 MG/50 ML BAG IVPB ONE; Famotidine IV* 10 MG/ML 2 ML (20 mg) IV ONE; Famotidine IV* 10 MG/ML 2 ML (20 mg) ONE; KETAMINE HCL* 50 MG/ML 10 ML VIAL ONE; Ketorolac INJ* 30 MG/ML 1 ML VIAL ONE; Labetalol IV* 5 MG/ML 20 ML VIAL ONE; Lactated Ringers 1000 ML Bag* 1,000 ML IV SCH; Lidocaine 2% PF * 5 ML VIAL ONE; Metoclopramide IV* 5 MG/ML 2 ML VIAL IV PRN; Midazolam* 1 MG/ML 5 ML VIAL (5 MG) ONE; Naloxone* 0.4 MG/ML 1 ML VIAL IV PRN; Ondansetron INJ* 2 MG/ML VIAL IV PRN; Ondansetron INJ* 2 MG/ML VIAL ONE; Phenylephrine 40 MCG/ML SYRINGE ONE; Propofol* 10 MG/ML 20 ML BTL ONE; fentaNYL* 50 MCG/ML 2 ML VIAL (100 MCG VIAL) ONE; oxyCODONE/Acetamin 5/325 MG* TAB ONE
[2019-12-06] MEDS: fentaNYL* 50 MCG/ML 2 ML VIAL (100 MCG VIAL) IV PRN ×2 (09:39→09:47)
[2019-12-06] MEDS: oxyCODONE/Acetamin 5/325 MG* TAB PO PRN ×2 (09:57→10:28)
[2019-12-06 10:43] VITALS: BP 132/95
--- NOTE | 2019-12-06 16:17 | OP ---
Operative Report - Blank - Operative Report Date of Operation: 12/06/19 Note: PATIENT: Malcolm De La Torre DATE OF : 1995 DATE OF SURGERY: 12/06/2019 SURGEON: Nicholas Hopkins MD [facility]AD IMPREGNATOR: STEVEN Vail, whos assistance was necessary for positioning, retraction, help with instrumentation, and closure. ANESTHESIOLOGIST: Dr. Laird PREOPERATIVE DIAGNOSIS: Right knee medial meniscus tear POSTOPERATIVE DIAGNOSIS: Right knee medial meniscus tear OPERATION: Right knee arthroscopy with medial meniscus repair ANESTHESIA: General IMPLANTS: Arthrex fiberstitch and meniscal cinch TOURNIQUET TIME: Less than one hour, with a well-padded thigh tourniquet at 250 mmHg. SPECIMENS: None ESTIMATED BLOOD LOSS: minimal COMPLICATIONS: none STATUS: Stable from the operating room to the recovery room and then home. INDICATIONS FOR PROCEDURE: Malcolm sustained a right medial meniscus tear with persistent symptoms. Both operative and non operative treatment alternatives were reviewed. Further, the nature and risks of surgery were reviewed in careful detail, in the office as well as the pre-operative holding area. Our discussions regarding the risks of surgery included, but were not limited to, infection, wound problems, nerve injury, neuroma, RSD, persistent symptoms, failure to heal or retear, blood clot , failure of the surgery, need for further surgery, development of arthritis, and even the remote chance of catastrophic complication. DESCRIPTION OF PROCEDURE: The patient was seen in the preoperative holding unit and informed written consent was obtained. The appropriate extremity was marked. The patient was then brought to the operating room and carefully positioned on the operating room table. Anesthesia was induced. All bony prominences were padded with great care. A well-padded thigh tourniquet was placed. A chlorhexidine based pre- scrub was performed followed by a chloraprep prep and drape in standard sterile fashion. A surgical safety pause was then conducted in which we confirmed the appropriate patient, extremity, planned procedure, availability of equipment, indication and administration of prophylactic antibiotics, and DVT prophylaxis in the form of a compression boot on the non-surgical extremity. I began with an Esmarch exsanguination of the limb and inflated the tourniquet. I insufflated the joint by injecting sterile saline. I began by making a standard anterolateral knee arthroscopy portal. The arthroscope was inserted into the knee joint and a diagnostic arthroscopy was performed. Then under direct visualization an anteromedial arthroscopy portal was made. I introduced a probe into the joint. He had a longitudinal tear of the posterior horn of the medial meniscus. There was no instability of the root appreciated. I used a rasp to roughen up the edges of the tear. I then used an Arthrex fiberstitch all inside meniscal repair in a horizontal pattern. I then placed a second fiberstitch. I elected to place one more suture, so an Arthrex meniscal cinch was then used to perform a third horizontal pattern repair. The sutures held the tear tightly together. I used the probe to probe the tear and the repair felt nice and secure and stable. No other tears were appreciated. I then performed an extensive irrigation of the joint while running the shaver in each of the knee compartments to remove any loose debris. Once thoroughly irrigated and debrided, I suctioned the fluid out of the joint. The arthroscopy portals were then closed utilizing 3-0 nylon. A sterile dressing was then applied. The patient was then awakened from anesthesia and transferred to the recovery room in stable condition. There were no complications. All needle and sponge counts were correct at the end of the case. ATTESTATION: I attest I was present and scrubbed and performed the critical portions of the procedure myself. POSTOPERATIVE PLAN: He will be touchdown weightbearing and follow up in 2 weeks for likely suture removal. He will start physical therapy and a protocol was provided.
== END | disposition home or self-care (01) ==
LOC: OR 06:18
PROVIDERS: ATTEND Orthopaedic Surgery
DX: S83.231A Complex tear of medial meniscus, current injury, right knee, initial encounter (principal); I10 Essential (primary) hypertension; F17.210 Nicotine dependence, cigarettes, uncomplicated; K44.9 Diaphragmatic hernia without obstruction or gangrene; E11.9 Type 2 diabetes mellitus without complications; Z79.84 Long term (current) use of oral hypoglycemic drugs; Z88.0 Allergy status to penicillin; Z88.1 Allergy status to other antibiotic agents; W00.0XXA Fall on same level due to ice and snow, initial encounter; Y92.9 Unspecified place or not applicable
CPT/HCPCS: A9270-GY; C1713; J1885; J2250; J2405; J2704; J3010; J3490